=== PATIENT | female | born 1935 | race Caucasian/White ===

== ENCOUNTER 2016-12-13 14:45 | Outpatient (CLI) | payer MEDICARE, MEDICAID ==
--- NOTE | 2016-12-14 15:57 | Mammography Report ---
DIGITAL SCREENING MAMMOGRAM: 12/13/2016 CLINICAL INDICATION: An 81-year-old with history of previous right lumpectomy, for screening. COMPARISON: 11/2011, 10/2008, 03/2007. TECHNIQUE: Routine CC and MLO projections were obtained of the breasts. FINDINGS: The breasts demonstrate heterogeneously dense fibroglandular parenchyma bilaterally. Posts urgical changes in the right breast are stable. No suspicious masses, clustered microcalcifications, or regions of architectural distortion are identified. IMPRESSION: BENIGN FINDINGS. RECOMMENDATION: ROUTINE ANNUAL SCREENING UNLESS OTHERWISE CLINICALLY INDICATED. BIRADS CATEGORY 2-BENIGN FINDINGS. STANDARD QUALIFYING STATEMENTS 1. This examination was reviewed with the aid of Computer-Aided Detection (CAD). 2. A negative or benign imaging report should not delay biopsy if clinically suspicious findings are present. Consider surgical consultation if warranted. More than 5% of cancers are not identified by i maging. 3. Dense breasts may obscure an underlying neoplasm. JOB #: [id number] EXT JOB #:[id number]
== END 2016-12-13 14:46 | disposition home or self-care (01) ==
LOC: DI.S 14:45
PROVIDERS: ATTEND Obstetrics & Gynecology
DX: Z12.31 Encounter for screening mammogram for malignant neoplasm of breast (principal)
CPT/HCPCS: 77067

== ENCOUNTER 2016-12-23 10:30 | Outpatient (CLI) | payer MEDICARE, MEDICAID | END 2016-12-23 10:31 | disposition home or self-care (01) | LOC: LAB.F 10:30 | PROVIDERS: ATTEND Obstetrics & Gynecology | DX: Z13.220 Encounter for screening for lipoid disorders (principal) ==

== ENCOUNTER 2018-04-09 10:52 | Emergency (ER) | payer MEDICARE, MEDICAID ==
[2018-04-09] MEDS ORDERED: BACITRACIN OINT TOP STA (13:42)
--- NOTE | 2018-04-09 14:30 | CT Report ---
Reason: fall onto face, with right facial swelling Procedure Date: 04/09/2018 Accession Number: [id number] / [id number] Procedure: CT - Facial Bones W/O CPT Code: FULL RESULT: EXAM: CT MAXILLOFACIAL WITHOUT CONTRAST EXAM DATE: 04/09/2018 02:10 PM. CLINICAL HISTORY: Fall onto face, with right facial swelling. COMPARISONS: None. TECHNIQUE: Thin-section axial images were acquired of the face without contrast. Post-processing: Coronal and sagittal reformats. Other: None. In accordance with CT protocol optimization, one or more of the following dose reduction techniques were utilized for this exam: automated exposure control, adjustment of mA and/or KV based on patient size, or use of iterative reconstructive technique. FINDINGS: Soft Tissue: The infratemporal fossa and parapharyngeal spaces are unremarkable. Orbits: Symmetric and unremarkable. Bones: No fracture or bone lesion. Temporomandibular Joints: The temporomandibular joints are symmetric and normally located. Sinuses: There is a mucoid retention cyst in the right maxillary sinus and mild mucoperiosteal thickening in both maxillary sinuses which continues in the ethmoid air cells. The inferior left frontal sinus also demonstrates mucosal thickening. Other: There is soft tissue swelling and a laceration in the right periorbital region. IMPRESSION: No facial bone fracture. Sinus disease. RADIA
--- NOTE | 2018-04-09 14:38 | ED Physician Documentation ---
PD HPI Fall - Stated complaint Stated Complaint: LEFT FACIAL LAC/GLF - Chief complaint Chief Complaint: Laceration - History obtained from History obtained from: Patient - History of Present Illness Mechanism of injury: Tripped Fall distance: Sitting position Where injury occurred: Street Timing - onset: Today Injury(ies) location: Face Worsens with: Palpation Similar symptoms before: Has not had sx before - Additional information Additional information: The patient is an 82-year-old female who was walking her dog when she tripped, and was not able to put her hand out fast enough to catch her fall, and hit her face on the asphalt. She presents to the emergency department now because of laceration to her forehead. She denies loss of consciousness. She reports mild headache in the area of impact. She denies nausea or vomiting. She denies neck pain, or any other injuries. Tetanus status is up-to-date. Review of Systems Constitutional: denies: Fever, Fatigue Eyes: denies: Decreased vision Ears: denies: Tinnitus/ringing Nose: denies: Congestion Cardiac: denies: Chest pain / pressure, Palpitations Respiratory: denies: Dyspnea, Cough GI: denies: Abdominal Pain, Nausea, Vomiting : denies: Dysuria Skin: reports: Laceration (s) (forehead) Musculoskeletal: denies: Neck pain, Back pain, Extremity pain Neurologic: reports: Headache (Mild headache at the area of impact on the forehead.). denies: Focal weakness, Numbness, Altered mental status, LOC PD PAST MEDICAL HISTORY - Past Medical History Past Medical History: Yes Cardiovascular: None Respiratory: None Neuro: None Endocrine/Autoimmune: None GI: None OPHTHALMIC ASST: None : None HEENT: None Psych: None Musculoskeletal: None Derm: None - Past Surgical History Past Surgical History: Yes General: Appendectomy, Colonoscopy Ortho: Other /OPHTHALMIC ASST: section HEENT: Tonsil/Adenoidectomy - Present Medications Home Medications: Ambulatory Orders Medication Instructions Recorded Confirmed Melatonin 3 mg PO DAILY 10/16/13 10/28/14 Multivitamin [Multivitamins] 1 each PO DAILY 10/16/13 10/28/14 - Allergies Allergies/Adverse Reactions: Allergies Allergy/AdvReac Type Severity Reaction Status Date / Time No Known Drug Allergies Allergy Verified 04/09/18 11:00 - Social History Does the pt smoke?: No Smoking Status: Former smoker Does the pt drink ETOH?: Yes ETOH Use: Wine Does the pt have substance abuse?: No - Immunizations Immunizations are current?: Yes - POLST Patient has POLST: No PD ED PE NORMAL - Vitals Vital signs reviewed: Yes (Systolic hypertension initially.) - General General: Alert and oriented X 3, Well developed/nourished - HEENT HEENT: PERRL, EOMI, Ears normal, Pharynx benign, Other (There is a 2 cm stellate laceration on the right side of the forehead. There is no bony step-off palpated. There is surrounding ecchymosis, as well as soft tissue swelling over the right maxillary prominence.) - Neck Neck: No bony TTP, No adenopathy, Other (Full cervical range of motion without tenderness.) - Cardiac Cardiac: RRR, No murmur - Respiratory Respiratory: No respiratory distress, Clear bilaterally - Abdomen Abdomen: Soft, Non tender - Back Back: No CVA TTP, No spinal TTP - Derm Derm: No rash - Extremities Extremities: No tenderness to palpate, Normal ROM s pain - Neuro Neuro: Alert and oriented X 3, No motor deficit, No sensory deficit, Normal speech Results - Vitals Vitals: Oxygen O2 Source Room air - Rads (name of study) CT facial bones Radiology: Prelim report reviewed, EMP read contemporaneously, See rad report (No facial bone fracture.) Procedures - Laceration (location) Forehead Length in cm: 2 Wound type: Stellate, Into subcut fat Neurovascular status: Sensory intact, Vascular intact Anesthesia: Lidocaine 1% with epi Wound Preparation: Hibiclens, Irrigated copiously NS, Wound explored, To the base. No: FB identified Skin layer closure: Nylon, Interrupted, Size #-0 - enter number (5), Sutures - enter # (7) Other: Patient tolerated well, No complications, Neurovascular intact, Dressing applied, Tetanus UTD Complexity: Simple PD MEDICAL DECISION MAKING - ED course Complexity details: reviewed results, re-evaluated patient, considered differential, d/w patient, d/w family ED course: The patient's presentation is significant for forehead laceration caused by a trip and fall. CT scan of the facial bones reveals no facial bone fractures. Treatment in the emergency department included suture repair of the laceration after instilling local anesthetic and cleaning the wound thoroughly. Antibiotic ointment and contrast dressing was applied. I discussed with her and her the expected course of injury, appropriate wound care in timing for suture removal, as well as potentially worrisome signs or symptoms that should prompt reevaluation in the emergency department. Departure - Departure Disposition: 01 Home, Self Care Clinical Impression: Laceration of forehead Qualifiers: Encounter type: initial encounter Qualified Code(s): S01.81XA - Laceration without foreign body of other part of head, initial encounter Fall Qualifiers: Encounter type: initial encounter Qualified Code(s): W19.XXXA - Unspecified fall, initial encounter Condition: Stable Instructions: ED Laceration All Follow-Up: [facility] [Provider Group] Comments: Keep the wound clean, and apply antibiotic ointment daily. You can use Tylenol or ibuprofen if needed for pain or discomfort. Follow-up for suture removal in about 1 week. Return to the emergency department if you develop markedly increasing headache, any sign of infection, or otherwise worsening symptoms. Discharge Date/Time: 04/09/18 14:54
[2018-04-09 14:53] VITALS: BP 159/79
== END 2018-04-09 14:54 | disposition home or self-care (01) ==
LOC: ED 10:52
DX: S01.81XA Laceration without foreign body of other part of head, initial encounter (principal); W01.198A Fall on same level from slipping, tripping and stumbling with subsequent striking against other object, initial encounter; Y93.K1 Activity, walking an animal; Z87.891 Personal history of nicotine dependence
CPT/HCPCS: 12011; 70486; 99283; A9270

== ENCOUNTER 2018-09-12 09:49 | Outpatient (CLI) | payer MEDICARE, MEDICAID | END 2018-09-12 09:50 | disposition home or self-care (01) | LOC: LAB.S 09:49 | PROVIDERS: ATTEND Internal Medicine | DX: Z00.00 Encounter for general adult medical examination without abnormal findings (principal) | CPT/HCPCS: 36415; 84443 ==

== ENCOUNTER 2018-10-08 09:26 | Outpatient (CLI) | payer MEDICARE, MEDICAID ==
[2018-10-08 18:38] LABS: CHOL/HDL RATIO 3.2 (<4.4); CHOLESTEROL 231 mg/dL; HDL CHOLESTEROL 72 mg/dL; LDL CHOLESTEROL,CALCULATED 144 mg/dL; VLDL CHOLESTEROL 15 mg/dL
== END 2018-10-08 09:27 | disposition home or self-care (01) ==
LOC: LAB.S 09:26
PROVIDERS: ATTEND Internal Medicine
DX: Z00.00 Encounter for general adult medical examination without abnormal findings (principal)
CPT/HCPCS: 36415; 80061; 83721

== ENCOUNTER 2019-04-30 09:47 | Outpatient (CLI) | payer MEDICARE, MEDICAID ==
--- NOTE | 2019-04-30 10:43 | XRAY Report ---
Reason: HYPERTENSION, FATIGUE Procedure Date: 04/30/2019 Accession Number: [id number] / [id number] Procedure: XRS - Chest 2 View X-Ray CPT Code: 96299 Final Report FULL RESULT: EXAM: CHEST RADIOGRAPHY EXAM DATE: 04/30/2019 10:00 AM. CLINICAL HISTORY: HYPERTENSION, FATIGUE. COMPARISON: 10/15/2008 10:42 AM. TECHNIQUE: 2 views. FINDINGS: Lungs/Pleura: No focal opacities evident. No pleural effusion. No pneumothorax. Normal volumes. Mediastinum: Heart and mediastinal contours are unremarkable. Other: Stable postsurgical changes in the right breast. Post traumatic and post surgical changes in the proximal right humerus. Decreased bone mineralization. Multilevel cervical and thoracic spondylosis. Accentuated thoracic kyphosis. IMPRESSION: 1. No acute findings. 2. Other stable chronic degenerative end post surgical changes. 3. Continued accentuation of the thoracic kyphosis. RADIA
[2019-04-30 17:16] LABS: BASOPHILS % (AUTO) 0.5 %; EOSINOPHILS # (AUTO) 0.3 10^3/uL (0.0-0.7); EOSINOPHILS % (AUTO) 3.3 %; HGB - HEMOGLOBIN 13.9 g/dL (12.0-16.0); LYMPHOCYTES # (AUTO) 1.4 10^3/uL (1.5-3.5); LYMPHOCYTES % (AUTO) 18.7 %; MEAN CORPUSCULAR HEMOGLOBIN 28.1 pg (27.0-31.0); MEAN CORPUSCULAR VOLUME 90.7 fL (81.0-99.0); MEAN PLATELET VOLUME 9.6 fL (7.9-10.8); MONOCYTES # (AUTO) 0.5 10^3/uL (0.0-1.0); MONOCYTES % (AUTO) 7.1 %; NEUTROPHILS # (AUTO) 5.2 10^3/uL (1.5-6.6); NEUTROPHILS % (AUTO) 70.1 %; PLT - PLATELET COUNT 318 10^3/uL (130-450); RED BLOOD COUNT 4.94 10^6/uL (4.20-5.40); WHITE BLOOD COUNT 7.5 x10^3/uL (4.8-10.8)
[2019-04-30 18:03] LABS: ALBUMIN 4.2 g/dL (3.2-5.5); ALBUMIN/GLOBULIN RATIO 1.2 (1.0-2.2); ALKALINE PHOSPHATASE 59 IU/L (42-121); ALT ALANINE AMINOTRANSFERASE 12 IU/L (10-60); AST ASPARTATE AMINOTRANSFERASE 26 IU/L (10-42); BILIRUBIN,TOTAL 0.7 mg/dL (0.2-1.0); BUN - BLOOD UREA NITROGEN 14 mg/dL (6-20); CALCIUM 9.5 mg/dL (8.5-10.3); CARBON DIOXIDE - CO2 24 mmol/L (21-32); CHLORIDE 104 mmol/L (101-111); CHOL/HDL RATIO 2.8 (<4.4); CHOLESTEROL 256 mg/dL; CREATININE 0.6 mg/dL (0.4-1.0); GFR - MDRD 95 (>89); GLUCOSE 96 mg/dL (70-100); HDL CHOLESTEROL 93 mg/dL; LDL CHOLESTEROL,CALCULATED 147 mg/dL; LDL/HDL RATIO 1.6 (<4.4); SODIUM 137 mmol/L (135-145); TOTAL PROTEIN 7.7 g/dL (6.7-8.2); VLDL CHOLESTEROL 16 mg/dL
== END 2019-04-30 09:48 | disposition home or self-care (01) ==
LOC: DI.S 09:47
PROVIDERS: ATTEND Registered Nurse
DX: I10 Essential (primary) hypertension (principal); R53.83 Other fatigue
CPT/HCPCS: 36415; 71046; 80053; 80061; 83721; 84443; 84484; 85025